=== PATIENT | female | born 1945 | race Caucasian/White ===

== ENCOUNTER → 2022-12-22 | Outpatient (CLI) | payer OTHER | END | disposition home or self-care (01) | LOC: SHCH 13:07 | PROVIDERS: ATTEND Internal Medicine Cardiovascular Disease | DX: I87.2 Venous insufficiency (chronic) (peripheral) (principal); I82.812 Embolism and thrombosis of superficial veins of left lower extremity; Z98.890 Other specified postprocedural states | CPT/HCPCS: 93971 ==

== ENCOUNTER → 2022-12-29 | Outpatient (CLI) | payer OTHER | END | disposition home or self-care (01) | LOC: SHCH 14:24 → EDUNIT# 15:30 | PROVIDERS: ATTEND Internal Medicine Cardiovascular Disease | DX: I87.2 Venous insufficiency (chronic) (peripheral) (principal); I82.811 Embolism and thrombosis of superficial veins of right lower extremity; Z98.890 Other specified postprocedural states | CPT/HCPCS: 93971 ==